=== PATIENT | male | born 1970 | race African-American/Black ===

== ENCOUNTER 2022-06-23 06:46 | Inpatient (IN) | payer OTHER, SELFPAY ==
[2022-06-23] VITALS (17 sets, daily range): BP systolic 128–149; BP diastolic 54–89; PULSE 73–90; RESP 12–18; TEMP 36.4–36.8; O2SAT 96–100; BMI 33.1
--- NOTE | ~2022-06-23 | XR_ITS ---
EXAMINATION: XR chest 1V portable INDICATION: Swelling TECHNIQUE: Portable AP chest at 0759 hours COMPARISON: None available FINDINGS: Cardiomegaly is noted. There is a mild diffuse interstitial pattern. More focal airspace op acities are present in the mid and lower lung zones. No pleural effusion or pneumothorax. IMPRESSION: 1. Cardiomegaly with mild pulmonary edema. 2. Airspace opacities of the mid and lower lung zones, consistent with pulmonary edema versus atelect asis versus pneumonia. Reviewed, dictated and finalized at location A. IMPRESSION: 1. Cardiomegaly with mild pulmonary edema. 2. Airspace opacities of the mid and lower lung zones, consistent with pulmonar y edema versus atelectasis versus pneumonia.
--- NOTE | ~2022-06-23 | US_ITS ---
EXAMINATION: US abdomen limited DATE: 06/25/2022 11:42 INDICATION: Right upper quadrant pain TECHNIQUE: Multiple grayscale and Doppler ultrasound images of the abdomen were obtained. COMPARISON: None available FINDINGS: The head and body of the pancreas are normal. The pancreatic tail is obscured by bowel gas. The liver is normal with normal echogenicity and echotexture. No surface nodularity. Normal hepatope shawn flow in the main portal vein. The gallbladder is normal with no abnormal wall thickening, pericho lecystic fluid or stones. The normal common bile duct measures 3 mm. There was no sonographic Bermeo sign. A right pleural effusion is noted. IMPRESSION: 1. Normal sonographic study of the gallbladder. 2. Right pleural effusion noted. Reviewed, dictated and finalized at location A.
--- NOTE | ~2022-06-23 | US_ITS ---
EXAMINATION: US venous doppler [facility] DATE: 06/24/2022 10:41 INDICATION: Lower limb edema. TECHNIQUE: Grayscale ultrasound images without and with compression and Doppler ultrasound images of the bilateral lower extremity veins were obtained. COMPARISON: None. FINDINGS: The visualized portions of right common femoral vein, profunda (deep) femoral vein, femoral vein, pop liteal vein, peroneal veins, posterior tibial veins, and greater saphenous vein outflow are patent. The visualized portions of left common femoral vein, profunda femoral vein, femoral vein, popliteal v ein, peroneal veins, posterior tibial veins, and greater saphenous vein outflow are patent. IMPRESSION: 1. No deep venous thrombosis. Reviewed, dictated and finalized at location A.
--- NOTE | 2022-06-23 07:27 | ED.GENADULT ---
HPI - General Adult General Chief complaint: Unspecified Stated complaint: leg swelling Time Seen by Provider: 06/23/22 07:27 Source: patient History of Present Illness HPI narrative: 52 years old -[place]os[place] male came from home by private car complaining of swelling of the lower extremities, noticed 3 days ago. History of hypertension, ran out of medication over 1 year ago which include blood pressure medicine and water pills. He denies any fever, chills, nausea, vomiting, chest pain, shortness of breath. History of tobacco use and alcohol use occasionally. He denies any drug use. Related Data Home Medications Medication Instructions Recorded Confirmed No Home Medications 06/23/22 06/23/22 Allergies Allergy/AdvReac Type Severity Reaction Status Date / Time No Known Allergies Allergy Verified 06/23/22 07:20 Review of Systems Review of Systems: All systems reviewed & are unremarkable except as noted in HPI and below Exam Narrative: General appearance: Well-developed, well-nourished Skin: 3+ edema up to the knees bilaterally Head: Normocephalic, nontraumatic Eyes: Clear conjunctiva ENT: Oropharynx normal, ears normal, nose normal Neck: Supple, nontender Chest and respiratory: Airway patent, no respiratory distress, no accessory muscle use Heart: Regular rate/rhythm Abdomen: Soft, nontender, no organomegaly, quiet bowel sounds Vascular: Normal peripheral pulses, normal capillary refill. Musculoskeletal: Normal range of motion, nontender back Neurologic: Alert and oriented ?3, COOK PIE is normal as tested, no gross motor deficit Course Vital Signs Vital signs: Vital Signs Temperature 36.8 C 06/23/22 07:02 Pulse Rate 78 06/23/22 07:02 Respiratory Rate 18 06/23/22 07:02 Blood Pressure 146/76 H 06/23/22 07:02 Pulse Oximetry 98 06/23/22 07:02 Oxygen Delivery Room Air 06/23/22 07:02 Temperature 36.8 C 06/23/22 07:02 Pulse Rate 82 06/23/22 08:36 Respiratory Rate 18 06/23/22 08:36 Blood Pressure 149/71 H 06/23/22 08:36 Pulse Oximetry 99 06/23/22 08:36 Oxygen Delivery Room Air 06/23/22 07:02 Medical Decision Making Vital Signs Vital Signs: Vital Signs Temperature 36.8 C 06/23/22 07:02 Pulse Rate 78 06/23/22 07:02 Respiratory Rate 18 06/23/22 07:02 Blood Pressure 146/76 H 06/23/22 07:02 Pulse Oximetry 98 06/23/22 07:02 Oxygen Delivery Room Air 06/23/22 07:02 Temperature 36.8 C 06/23/22 07:02 Pulse Rate 82 06/23/22 08:36 Respiratory Rate 18 06/23/22 08:36 Blood Pressure 149/71 H 06/23/22 08:36 Pulse Oximetry 99 06/23/22 08:36 Oxygen Delivery Room Air 06/23/22 07:02 Lab Data Result diagrams: 06/23/22 07:46 06/23/22 07:46 Labs: Lab Results 06/23/22 06/23/22 Range/Units 07:46 07:46 WBC 5.8 (4.5-10.0) K/mm3 RBC 3.80 L (4.6-6.20) M/mm3 Hgb 10.4 L (14.0-18.0) g/dL Hct 33.6 L (42.0-52.0) % MCV 88.4 (80-100) fl MCH 27.4 (26-34) pg MCHC 31.0 L (32-36) g/dl RDW 15.2 H (11.5-14.5) % Plt Count 287 (150-375) k/mm3 MPV 12.4 H (7.4-10.4) fl Immature Gran % (Auto) 0.3 (0-0.5) % Neut % (Auto) 61.0 (45.5-73.1) % Lymph % (Auto) 23.0 (18.3-44.2) % Steele % (Auto) 11.2 H (2.6-8.5) % Eos % (Auto) 3.5 (0-4.4) % Baso % (Auto) 1.0 (0.2-1.2) % Lymph # (Auto) 1.33 (0.9-3.2) K/mm3 Steele # (Auto) 0.7 H (0.1-0.6) K/mm3 Eos # (Auto) 0.2 (0-0.3) K/mm3 Baso # (Auto) 0.1 (0.0-0.1) K/mm3 Abs Immat Gran (auto) 0.02 (0.00-0.031) K/mm3 Absolute Neuts (auto) 3.5 (1.3-6.7) K/mm3 Absolute Nucleated RBC 0.0 (0.0-0.012) K/mm3 Nucleated RBC % 0.0
--- NOTE | 2022-06-23 07:28 | ECG_ITS ---
Measurements Intervals [place] Rate: 79 P: 59 GA: 182 QRS: 39 QRSD: 104 T: 135 QT: 423 QTc: 486 Interpretive Statements SINUS RHYTHM WITH FREQUENT SUPRAVENTRICULAR PREMATURE COMPLEXES LEFT ATRIAL ENLARGEMENT LEFT VENTRICULAR HYPERTROPHY AND ST-T CHANGE Electronically Signed On 06-23-2022 11:42:45 CDT by Dinesh Dolan M.D.
[2022-06-23 07:49] LABS: Basophils Absolute Auto 0.1 K/mm3 (0.0-0.1); Eosinophils Absolute Auto 0.2 K/mm3 (0-0.3); Eosinophils Percent Auto 3.5 % (0-4.4); Hematocrit 33.6 % (42.0-52.0); Hemoglobin 10.4 g/dL (14.0-18.0); Immature Granulocyte Absolute 0.02 K/mm3 (0.00-0.031); Immature Granulocyte Percent A 0.3 % (0-0.5); Lymphocytes Absolute Auto 1.33 K/mm3 (0.9-3.2); Mean Corpuscular Hemoglobin 27.4 pg (26-34); Mean Corpuscular Volume 88.4 fl (80-100); Mean Platelet Volume 12.4 fl (7.4-10.4); Monocytes Absolute Auto 0.7 K/mm3 (0.1-0.6); Monocytes Percent Auto 11.2 % (2.6-8.5); Neutrophils Absolute Auto 3.5 K/mm3 (1.3-6.7); Platelet Count Result 287 k/mm3 (150-375); Red Cell Distribution Width 15.2 % (11.5-14.5); White Blood Count 5.8 K/mm3 (4.5-10.0)
[2022-06-23 08:03] LABS: Alanine Aminotransferase 530 U/L (6-50); Albumin Level 3.1 g/dL (3.5-5.1); Alkaline Phosphatase 98 U/L (38-126); Anion Gap 11 mmol/L (8-16); Aspartate Amino Transferase 97 U/L (17-59); Bilirubin,Total 1.1 mg/dL (0.2-1.3); Blood Urea Nitrogen 19 mg/dL (9-20); Calcium 8.5 mg/dL (8.4-10.2); Carbon Dioxide 24 mmol/L (22-30); Chloride 103 mmol/L (98-107); Estimated CRCL calculation 98 ml/min; Estimated Glomerular Filt Rate > 60; Glucose 120 mg/dL (65-110); Potassium 3.4 mmol/L (3.4-5.0); Sodium 138 mmol/L (137-145)
[2022-06-23 08:11] LABS: NT Pro B Type Natriuretic Pept 2220 pg/mL (5-100)
[2022-06-23] MEDS: FUROSEMIDE INJ 100 MG/10 ML VIAL 80 MG IV PUSH (10:40)
[2022-06-23] MEDS: NITROGLYCERIN OINTMENT 1 INCH DOSE TRANSDERM ×2 (10:41→18:00)
--- NOTE | 2022-06-23 14:20 | ADMGEN ---
This patient, Gabriel Persaud, was admitted to IMU Room 210-01 on 06/23/22 at 1255. Patient/family oriented to hospital policies and general routines including ID bracelet, bed and alarms, visiting hours, pain management, procedures, bathroom and other care routines, personal items, smoking policy, room service/diet, and visiting hours. Information on how to activate the Rapid Response Team has been discussed. Patient/Family are encouraged to report perceived risks to care and to ask questions if they do not understand what they are told or what they should do.
--- NOTE | 2022-06-23 16:15 | PM.IMHP ---
H&P: HPI History of Present Illness Date/Time: 06/23/22 16:15 Chief Complaint: shortness of breath Narrative: ED-HPI narrative: 52 years old -Aust[place] male came from home by private car complaining of swelling of the lower extremities, noticed 3 days ago.? History of hypertension, ran out of medication over 1 year ago which include blood pressure medicine and water pills.? He denies any fever, chills, nausea, vomiting, chest pain, shortness of breath.? History of tobacco use and alcohol use occasionally.? He denies any drug use. patient states the has not seen his physician for 2 year and does not remember what medication he takes, however he noticed progressive shortness of breath with exertion and lower extremity edema presented emergency department for further evaluate, suspect patient has a congestive heart failure, due to persistent hypertension and noncompliance, patient was started on IV Lasix to diurese and nitropaste, to further evaluate will do the lower extremity Doppler to rule out DVT and cardiac echo to further evaluate etiology of congestive heart failure, patient admitted with observation status Review of Systems Review of Systems: All systems reviewed & are unremarkable except as noted in HPI and below PMFSH Social History Social History Smoking packs per day: 0.25 Smoking cigarettes per day: 5.0 Years smoked: 23 Smoking pack-years: 5.75 Smoking status: Current every day smoker Tobacco type: cigarettes Alcohol intake: current Drinks per week: 3 Substance use: never Substance use type: does not use Spiritual care concerns: No Meds Home Medications and Allergies Home Medications Medication Instructions Recorded Confirmed Type No Home Medications 06/23/22 06/23/22 History Allergies Allergy/AdvReac Type Severity Reaction Status Date / Time No Known Allergies Allergy Verified 06/23/22 07:20 Vital Signs Vital Signs - 24 hr 06/23/22 07:02 06/23/22 08:01 06/23/22 08:36 Temperature 98.2 F Pulse Rate 78 82 Respiratory Rate 18 18 Blood Pressure 146/76 H 136/79 149/71 H Pulse Oximetry 98 98 99 Oxygen Delivery Room Air 06/23/22 08:31 06/23/22 09:01 06/23/22 10:01 Temperature Pulse Rate 75 76 74 Respiratory Rate 18 18 14 Blood Pressure 149/71 H 144/89 H 142/63 H Pulse Oximetry 100 100 96 Oxygen Delivery 06/23/22 10:39 06/23/22 11:20 06/23/22 12:36 Temperature Pulse Rate 77 75 73 Respiratory Rate 16 16 18 Blood Pressure 142/63 H 131/61 134/78 Pulse Oximetry 100 98 97 Oxygen Delivery 06/23/22 12:00 06/23/22 12:57 06/23/22 14:00 Temperature 97.6 F Pulse Rate 74 75 75 Respiratory Rate 12 Blood Pressure 130/80 Pulse Oximetry 100 Oxygen Delivery 06/23/22 12:55 Temperature Pulse Rate Respiratory Rate Blood Pressure Pulse Oximetry Oxygen Delivery Room Air Exam Narrative: moderately obese Patient is comfortable, NAD HEENT: eyes are clear and none icteric LUNGS: bilateral fair entry with rales HEART: RR S1S2 ABD: BS+, Soft and nontender Lower extremities: b/l edema SKIN: nonjaundiced Neuro: grossly intact. H&P: Results Labs Labs: Short CBC 06/23/22 Range/Units 07:46 WBC 5.8 (4.5-10.0) K/mm3 Hgb 10.4 L (14.0-18.0) g/dL Hct 33.6 L (42.0-52.0) % Plt Count 287 (150-375) k/mm3 BMP 06/23/22 07:46 Sodium 138 Potassium 3.4 Chloride 103 Carbon Dioxide 24 BUN 19 Creatinine 1.00 Glucose 120 H Calcium 8.5 Cardiac Enzymes 06/23/22 Range/Units 10:38 Troponin I 0.020 (0.000-0.034) ng/mL Liver Function 06/23/22 Range/Units 07:46 Total Bilirubin 1.1 (0.2-1.3) mg/dL AST 97 H (17-59) U/L ALT 530 H (6-50) U/L Alkaline Phosphatase 98 (38-126) U/L Albumin 3.1 L (3.5-5.1) g/dL Assessment and Plan Assessment and plan (1) CHF (congestive heart failure):
[2022-06-23] MEDS: POTASSIUM CHLORIDE 20 MEQ TABLET 40 MEQ PO (17:59)
[2022-06-23 19:07] LABS: Troponin I 0.023 ng/mL (0.000-0.034)
[2022-06-23] MEDS: FUROSEMIDE INJ 40 MG/4 ML VIAL IV PUSH (21:45)
[2022-06-24] VITALS (16 sets, daily range): BP systolic 123–149; BP diastolic 61–76; PULSE 73–88; RESP 12–18; TEMP 36.4–36.7; O2SAT 96–100
--- NOTE | 2022-06-24 | ECHO_ITS ---
Patient Info Name: Gabriel Persaud Age: 52 years : 1970 Gender: Male Ht: 72 in Wt: 244 lbs BSA: 2.40 m2 HR: 73 bpm BP: 123 / 72 mmHg Heart Rhythm: Sinus Rhythm Exam Date: 06/24/2022 9:41 AM Exam Location: [facility] Patient Status: Inpatient Admit Date: 06/23/2022 Staff Ordering Physician: Hernán Paul MD [employer] Machine Operator: Rashel Bermeo, ALIE, RT Attending Provider: Yash Arias MD Exam Type: CA echo dop color flow w con Study Info Indications I50.9 - Heart failure, unspecified Complete two-dimensional, color flow and Doppler transthoracic echocardiogram is performed. Strain analysis performed. Summary 1. Complete two-dimensional, color flow and Doppler transthoracic echocardiogram is performed. 2. Severe left ventricular enlargement, 6.1 cm by 2D and 7.5 cm by M-mode. Mild eccentric left ventricular hypertrophy. Severe global hypokinesis, visual ejection fraction 20-25%, calculated 31%. Diastolic function indeterminate. 3. Mild right ventricular enlargement and hypokinesis. 4. Left atrial chamber dimension is severely enlarged. 5. Right atrial chamber dimension is severely enlarged. 6. There is moderately severe to severe eccentric aortic valve regurgitation. Sclerotic aortic valve, probably trileaflet. 7. There is moderate to severe eccentric mitral valve regurgitation. PISA = 0.6 cm. 8. There is moderate tricuspid valve regurgitation. 9. There is mild pulmonic regurgitation. 10. Dilated inferior vena cava with <50% collapse upon inspiration consistent with significantly elevated right atrial pressure, 20 mmHg. 11. Moderate pulmonary hypertension, estimated pulmonary arterial systolic pressure is 60 mmHg. 12. Normal sinus rhythm. Left Ventricle Left ventricular chamber dimension is severely enlarged. Left ventricular systolic function is normal, estimated at 20-25%. There is mildly increased left ventricular wall thickness. Left ventricular septal wall motion is normal. The left ventricular diastolic function is indeterminate. Global longitudinal strain is severely elevated at -8 %. Right Ventricle Right ventricular chamber dimension is mildly enlarged. Right ventricular systolic function is reduced. Left Atria Left atrial chamber dimension is severely enlarged. Right Atria Right atrial chamber dimension is severely enlarged. Aortic Valve The aortic valve is trileaflet. There is moderate aortic valve sclerosis. There is no aortic valve stenosis. There is moderately severe to severe eccentric aortic valve regurgitation. Sclerotic aortic valve, probably trileaflet. Pulmonic Valve The pulmonic valve is normal. There is no pulmonic valve stenosis. There is mild pulmonic regurgitation. Mitral Valve The mitral valve has thickened leaflets. There is no mitral valve stenosis. There is moderate to severe eccentric mitral valve regurgitation. PISA = 0.6 cm. Tricuspid Valve The tricuspid valve leaflets are normal. There is no significant tricuspid valve stenosis. There is moderate tricuspid valve regurgitation. Moderate pulmonary hypertension, estimated pulmonary arterial systolic pressure is 60 mmHg. Pericardium/Pleural The pericardium appears normal. There is no pericardial effusion. Inferior Vena Cava Dilated inferior vena cava with <50% collapse upon inspiration consistent with significantly elevated right atrial pressure, 20 mmHg. Aorta The aortic root size at the sinus of Valsalva is normal. The prox
[2022-06-24] MEDS: NITROGLYCERIN OINTMENT 1 INCH DOSE TRANSDERM ×4 (00:34→18:22)
[2022-06-24 05:02] LABS: Hematocrit 32.3 % (42.0-52.0); Hemoglobin 10.1 g/dL (14.0-18.0); Mean Corpuscular HGB Conc 31.3 g/dl (32-36); Mean Corpuscular Hemoglobin 27.2 pg (26-34); Mean Corpuscular Volume 86.8 fl (80-100); Mean Platelet Volume 12.2 fl (7.4-10.4); Platelet Count Result 290 k/mm3 (150-375); Red Blood Count 3.72 M/mm3 (4.6-6.20); White Blood Count 5.3 K/mm3 (4.5-10.0)
[2022-06-24 05:20] LABS: Anion Gap 1 mmol/L (8-16); Blood Urea Nitrogen 13 mg/dL (9-20); Calcium 7.9 mg/dL (8.4-10.2); Carbon Dioxide 28 mmol/L (22-30); Chloride 105 mmol/L (98-107); Cholesterol 120 mg/dL (0-200); Estimated CRCL calculation 106 ml/min; Estimated Glomerular Filt Rate > 60; Glucose 97 mg/dL (65-110); HDL Direct 23 mg/dL; Magnesium 1.5 mg/dL (1.6-2.3); Potassium 3.7 mmol/L (3.4-5.0); Sodium 134 mmol/L (137-145); Triglycerides 74 mg/dL (<150)
[2022-06-24 05:25] LABS: LDL Cholesterol Direct 79 mg/dL
[2022-06-24 05:45] LABS: Hepatitis B Surface Antigen Negative (Negative)
[2022-06-24 05:51] LABS: HAV RESULT Negative (Negative); Hepatitis B Core IgM Result Negative (Negative)
[2022-06-24 06:02] LABS: Hepatitis C Virus Antibody Negative (Negative)
[2022-06-24] MEDS: ENOXAPARIN 40 MG/0.4 ML SYRINGE SUB-Q (09:39)
[2022-06-24] MEDS: MAGNESIUM OXIDE 400 MG TABLET PO (09:39)
[2022-06-24] MEDS: POTASSIUM CHLORIDE 20 MEQ TABLET 40 MEQ PO (09:39)
[2022-06-24] MEDS: MAGNESIUM SULF 2 GM/WATER 50ML 2 GM/50 ML BAG IVPB (09:39)
[2022-06-24] MEDS: FUROSEMIDE INJ 40 MG/4 ML VIAL IV PUSH ×2 (09:39→20:11)
--- NOTE | 2022-06-24 18:56 | PM.IMPN ---
Progress Note: A&P Assessment and Plan (1) CHF (congestive heart failure): Code(s): I50.9 - Heart failure, unspecified Status: Acute Assessment and Plan: ED-[facility] narrative: 52 years old -[place]at[place] male came from home by private car complaining of swelling of the lower extremities, noticed 3 days ago.? History of hypertension, ran out of medication over 1 year ago which include blood pressure medicine and water pills.? He denies any fever, chills, nausea, vomiting, chest pain, shortness of breath.? History of tobacco use and alcohol use occasionally.? He denies any drug use. patient states the has not seen his physician for 2 year and does not remember what medication he takes, however he noticed progressive shortness of breath with exertion and lower extremity edema presented emergency department for further evaluate, suspect patient has a congestive heart failure, due to persistent hypertension and noncompliance, patient was started on IV Lasix to diurese and nitropaste, to further evaluate will do the lower extremity Doppler to rule out DVT and cardiac echo to further evaluate etiology of congestive heart failure, 06/24/2022 interval history: patient states the has not seen his physician for 2 year and does not remember what medication he taking , however he noticed progressive shortness of breath with exertion and lower extremity edema presented emergency department for further evaluate, suspect patient has a congestive heart failure, due to persistent hypertension and noncompliance, patient was started on IV Lasix to diurese and nitropaste, today patient is his symptoms have improved is feeling much better compared to when he arrived, will add lisinopril 10 mg q.day, to further evaluate patient had the lower extremity Doppler to rule out DVT which is negative for DVT, and cardiac echo to further evaluate etiology of congestive heart failure results are pending will have PT OT evaluate the patient will benefit. (2) Elevated liver enzymes: Code(s): R74.8 - Abnormal levels of other serum enzymes Status: Acute Assessment and Plan: etiology uncertain will do acute hepatitis panel is negative most likely patient has fatty liver will do the abdominal ultrasound to further evaluate. Subjective Date/time seen: 06/24/22 18:56 06/24/2022 interval history: patient states the has not seen his physician for 2 year and does not remember what medication he taking , however he noticed progressive shortness of breath with exertion and lower extremity edema presented emergency department for further evaluate, suspect patient has a congestive heart failure, due to persistent hypertension and noncompliance, patient was started on IV Lasix to diurese and nitropaste, today patient is his symptoms have improved is feeling much better compared to when he arrived, will add lisinopril 10 mg q.day, to further evaluate patient had the lower extremity Doppler to rule out DVT which is negative for DVT, and cardiac echo to further evaluate etiology of congestive heart failure results are pending will have PT OT evaluate the patient will benefit. Review of Systems Review of Systems: All systems reviewed & are unremarkable except as noted in HPI and below Exam Narrative: moderately obese Patient is comfortable, NAD HEENT: eyes are clear and none icteric LUNGS: bilateral fair entry with rales HEART: RR S1S2 ABD: BS+, Soft and nontender Lower extremities: b/l edema SKIN: nonjaundiced Neuro: grossly intact. Objective Data Vital Signs Vital Signs: Vital Signs - 24 hr 06/23/22 20:00 06/23/22 20:00 06/23/22 20:00 Temperature 97.8 F Pulse Rate 84 80 Respiratory Rate 16 Blood Pressure 130/62 Pulse Oximetry 99 Oxygen Delivery Room Air 06/23/22 22:00 06/23/22 23:59 06/24/22 00:00 Temperature 97.6 F Pulse Rate 82 82 75 Respiratory Rate 16 Blood Pressure 142/75 H Pulse Oximetry 99 Ox
[2022-06-25] VITALS (15 sets, daily range): BP systolic 144–157; BP diastolic 62–86; PULSE 76–97; RESP 16–18; TEMP 36–37; O2SAT 96–100
[2022-06-25] MEDS: NITROGLYCERIN OINTMENT 1 INCH DOSE TRANSDERM ×2 (00:28→06:10)
[2022-06-25 05:07] LABS: Hematocrit 32.2 % (42.0-52.0); Hemoglobin 10.1 g/dL (14.0-18.0); Mean Corpuscular HGB Conc 31.4 g/dl (32-36); Mean Corpuscular Hemoglobin 27.2 pg (26-34); Mean Corpuscular Volume 86.6 fl (80-100); Mean Platelet Volume 11.8 fl (7.4-10.4); Platelet Count Result 287 k/mm3 (150-375); Red Blood Count 3.72 M/mm3 (4.6-6.20); Red Cell Distribution Width 15.2 % (11.5-14.5); White Blood Count 4.8 K/mm3 (4.5-10.0)
[2022-06-25 06:05] LABS: Anion Gap 8 mmol/L (8-16); Blood Urea Nitrogen 11 mg/dL (9-20); Calcium 8.4 mg/dL (8.4-10.2); Carbon Dioxide 27 mmol/L (22-30); Chloride 103 mmol/L (98-107); Estimated CRCL calculation 104 ml/min; Estimated Glomerular Filt Rate > 60; Glucose 99 mg/dL (65-110); Potassium 3.7 mmol/L (3.4-5.0); Sodium 138 mmol/L (137-145)
[2022-06-25] MEDS: ENOXAPARIN 40 MG/0.4 ML SYRINGE SUB-Q (08:37)
[2022-06-25] MEDS: FUROSEMIDE INJ 40 MG/4 ML VIAL IV PUSH ×2 (08:37→21:19)
[2022-06-25] MEDS: lisinopriL 10 MG TABLET PO (08:46)
[2022-06-25] MEDS: MAGNESIUM OXIDE 400 MG TABLET PO (08:47)
--- NOTE | 2022-06-25 11:26 | PM.CNCAR ---
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 S lower extremity edema is improving on Lasix.. Was started on Coreg 3.125 mg b.i.d. and lisinopril 10 mg daily as well as Lasix 40 mg IV b.i.d. -check with welfare case worker if we can start Entresto 24-26 mg b.i.d. if his insurance will cover. -continue Lasix. -will need to optimize heart failure management and reassess the severity of the mitral and aortic valve regurgitation. Discussed with the patient that he might need open heart surgery to repair all of that but that will be determined in the future after optimizing heart failure treatment. -will need Life Vest given frequent PVCs on telemetry. -tobacco cessation. -ischemic evaluation to be determined. History of Present Illness History of Present Illness Consult date/time: date of mabyffu51/01/22 11:26 Requesting physician: Alexnader Brooks MD Consult reason: congestive heart failure Reason For Visit: Acute pulmonary edema/elevated liver enzymes/nonco Narrative: this is 52-year-old patient with past history of hypertension who ran out of his medications a year ago and presents to hospital with lower extremity edema. Associated with dyspnea on exertion. Denies chest pain, dizziness, syncope, palpitations. Telemetry frequent PVCs. He smokes cigarettes but denies significant alcohol drinking. Denies drugs. on arrival his systolic blood pressures in the 140s. Chest x-ray reviewed and as myself shows cardiomegaly with mild vascular congestion. EKG reviewed and was massive showed sinus rhythm with frequent premature atrial contractions, LVH with ST T changes, left atrial enlargement. creatinine 1, troponins x2 negative. brain atretic peptide 2200 Echocardiogram showed1. Complete two-dimensional, color flow and Doppler transthoracic echocardiogram is performed. ? 2. Severe left ventricular enlargement, 6.1 cm by 2D and 7.5 cm by M-mode. Mild eccentric left ventricular hypertrophy.? Severe global hypokinesis, visual ejection fraction 20-25%, calculated 31%.? Diastolic function indeterminate. ? 3. Mild right ventricular enlargement and hypokinesis. ? 4. Left atrial chamber dimension is severely enlarged. ? 5. Right atrial chamber dimension is severely enlarged. ? 6. There is moderately severe to severe eccentric aortic valve regurgitation.? Sclerotic aortic valve, probably trileaflet. ? 7. There is moderate to severe eccentric mitral valve regurgitation.? PISA = 0.6 cm. ? 8. There is moderate tricuspid valve regurgitation. ? 9. There is mild pulmonic regurgitation. ? 10. Dilated inferior vena cava with <50% collapse upon inspiration consistent with significantly elevated right atrial pressure, 20 mmHg. ? 11. Moderate pulmonary hypertension, estimated pulmonary arterial systolic pressure is 60 mmHg. ? 12. Normal sinus rhythm. Review of Systems Constitutional: Constitutional: Denies chills, Denies fever(s) and Denies poor appetite Eyes: Eyes: Denies eye discharge, Denies loss of vision, Denies eye pain and Denies photophobia ENT: Denies dizziness, Denies epistaxis, Denies nasal congestion and Denies sore throat Cardiovascular: Cardiovascular: Denies chest pain, Denies syncope, Denies pedal edema, Reports leg edema, Denies palpitations, Reports dyspnea, Reports dyspnea on exertion and Reports orthopnea Respiratory: Respiratory: Denies cough, Reports dyspnea, Reports dyspnea on exertion and
[2022-06-25] MEDS: carvediloL 3.125 MG TABLET PO ×2 (12:25→21:19)
[2022-06-25] MEDS: POTASSIUM CHLORIDE 20 MEQ TABLET.ER PO (12:25)
--- NOTE | 2022-06-25 12:32 | PM.IMPN ---
Progress Note: A&P Assessment and Plan (1) CHF (congestive heart failure): Code(s): I50.9 - Heart failure, unspecified Status: Acute Assessment and Plan: Continue cardiac meds. Continue furosemide, carvedilol, lisinopril. Appreciate cardiology input (2) Elevated liver enzymes: Code(s): R74.8 - Abnormal levels of other serum enzymes Status: Acute Assessment and Plan: Ultrasound noted, monitor Subjective Date/time seen: 06/25/22 12:32 No complaints Exam Narrative: General: alert and oriented Psych: appropriate mood nad affect Eyes: PERRLA Neck: Trachea midline, no new lesions Skin: no changes Lungs: CTA Cardiac: Normal S1,S2, no MGR ABD: soft, nd, nt, nbs Ext: +1-2 2 bilateral lower extremity edema Vasc: Pulses intact Objective Data Vital Signs Vital Signs: Vital Signs - 24 hr 06/24/22 16:00 06/24/22 14:00 06/24/22 16:00 Temperature 97.6 F Pulse Rate 81 85 83 Respiratory Rate 12 Blood Pressure 140/66 Pulse Oximetry 100 Oxygen Delivery 06/24/22 18:00 06/24/22 16:00 06/24/22 19:50 Temperature 98 F Pulse Rate 80 77 Respiratory Rate 16 Blood Pressure 134/61 Pulse Oximetry 100 Oxygen Delivery Room Air 06/24/22 20:00 06/24/22 20:00 06/24/22 22:00 Temperature Pulse Rate 81 78 Respiratory Rate Blood Pressure Pulse Oximetry Oxygen Delivery Room Air 06/24/22 23:48 06/25/22 00:00 06/25/22 00:00 Temperature 97.7 F Pulse Rate 76 79 Respiratory Rate 16 Blood Pressure 123/68 Pulse Oximetry 99 Oxygen Delivery Room Air 06/25/22 02:00 06/25/22 04:00 06/25/22 04:00 Temperature Pulse Rate 80 84 Respiratory Rate Blood Pressure Pulse Oximetry Oxygen Delivery Room Air 06/25/22 04:00 06/25/22 06:00 06/25/22 08:44 Temperature 98.6 F Pulse Rate 80 77 81 Respiratory Rate 16 Blood Pressure 148/74 H Pulse Oximetry 98 96 Oxygen Delivery Room Air 06/25/22 08:00 06/25/22 08:00 06/25/22 10:00 Temperature 97.3 F L Pulse Rate 88 97 93 Respiratory Rate 18 Blood Pressure 151/86 H Pulse Oximetry 100 Oxygen Delivery 06/25/22 11:43 06/25/22 12:25 Temperature 97.5 F L Pulse Rate 84 84 Respiratory Rate 16 Blood Pressure 144/62 H Pulse Oximetry 98 Oxygen Delivery Intake/Output Intake/Output: Intake & Output 06/22/22 06/23/22 06/24/22 06/25/22 23:59 23:59 23:59 23:59 Intake Total 240 1220 300 Output Total 3000 2200 1999 Balance -6468 -095 -5521 Meds/Results Medications: Active Medications Generic Name Dose Route Start Last Admin Trade Name Freq PRN Reason Stop Dose Admin Acetaminophen 650 mg 06/23/22 10:30 Acetaminophen 325 Mg Tablet PO Q4H PRN Mild Pain (1-3) or Fever Carvedilol 3.125 mg 06/25/22 09:00 06/25/22 12:25 Carvedilol 3.125 Mg Tablet PO 3.125 mg Q12HR MYLES Administration Enoxaparin Sodium 40 mg 06/24/22 09:00 06/25/22 08:37 Enoxaparin 40 Mg/0.4 Ml Syringe SUB-Q 40 mg DAILY MYLES Administration Furosemide 40 mg 06/23/22 21:00 06/25/22 08:37 Furosemide Inj 40 Mg/4 Ml Vial IV PUSH 40 mg Q12HR MYLES Administration Lisinopril 10 mg 06/26/22 09:00 Lisinopril 10 Mg Tablet PO DAILY MYLES Magnesium Oxide 400 mg 06/24/22 09:00 06/25/22 08:47 Magnesium Oxide 400 Mg Tablet PO 400 mg QAM MYLES Administration Perflutren Lipid Microsphere 0 ml 06/23/22 16:12 Perflutren Lipid Microspheres 1.5 Ml Vial Diluted To 10 Ml Total Volume IV PUSH 06/25/22 16:12 ONCE PRN adequate visualization Protocol Potassium Chloride 20 meq 06/25/22 08:00 06/25/22 12:25 Potassium Chloride 20 Meq Tablet.Er PO 20 meq DAILY@0800 MYLES Administration Radiology Results: ITS Impressions Chest X-Ray 06/23/22 08:24 IMPRESSION: 1. Cardiomegaly with mild pulmonary edema. 2. Airspace opacities of the mid and lower lung zones, consistent with pulmonary edema vers
[2022-06-25 13:36] LABS: Phosphorus 3.6 mg/dL (2.5-4.5)
[2022-06-25 13:38] LABS: Magnesium 1.8 mg/dL (1.6-2.3)
--- NOTE | 2022-06-25 15:26 | PC.NURSE ---
On 06/25/22, the student, [Shreya Hutchins], provided care and completed [facility] documentation on this patient. I have reviewed the student's documentation and agree with the findings.
--- NOTE | 2022-06-25 15:59 | PC.NURSE ---
This patient, Gabriel Persaud, was transferred to [facility] on 06/25/22 at 1559. Personal belongings sent with patient. Report given to Jeanie OWUSU. Appropriate documentation sent with patient.
[2022-06-26] VITALS (13 sets, daily range): BP systolic 147–173; BP diastolic 66–84; PULSE 75–97; RESP 12–24; TEMP 36.3–36.8; O2SAT 91–100
[2022-06-26 05:39] LABS: Hematocrit 33.5 % (42.0-52.0); Hemoglobin 10.6 g/dL (14.0-18.0); Mean Corpuscular HGB Conc 31.6 g/dl (32-36); Mean Corpuscular Hemoglobin 27.2 pg (26-34); Mean Corpuscular Volume 85.9 fl (80-100); Mean Platelet Volume 12.1 fl (7.4-10.4); Platelet Count Result 286 k/mm3 (150-375); Red Cell Distribution Width 15.3 % (11.5-14.5); White Blood Count 4.8 K/mm3 (4.5-10.0)
[2022-06-26 05:52] LABS: Alanine Aminotransferase 263 U/L (6-50); Albumin Level 3.3 g/dL (3.5-5.1); Alkaline Phosphatase 74 U/L (38-126); Anion Gap 9 mmol/L (8-16); Aspartate Amino Transferase 39 U/L (17-59); Bilirubin,Total 0.9 mg/dL (0.2-1.3); Blood Urea Nitrogen 12 mg/dL (9-20); Calcium 8.8 mg/dL (8.4-10.2); Carbon Dioxide 26 mmol/L (22-30); Chloride 104 mmol/L (98-107); Estimated CRCL calculation 82 ml/min; Estimated Glomerular Filt Rate > 60; Glucose 119 mg/dL (65-110); Potassium 3.7 mmol/L (3.4-5.0); Sodium 139 mmol/L (137-145)
[2022-06-26 06:00] LABS: NT Pro B Type Natriuretic Pept 4390 pg/mL (5-100)
--- NOTE | 2022-06-26 08:14 | PM.PNCARD ---
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 Improving with diuresis Continue with IV diuresis for now Initiating GDMT. Continue Coreg. I have stopped his lisinopril with the intention of starting Entresto after 36 hour MITCH washout. Will add spironolactone today LifeVest is in place Accurate intake and output Daily BMP while diuresing. Stable thus far Daily weight CHF counseling Ischemic evaluation at some point in the future Further assessment of severity of his MR and TR when he has been optimized from a CHF standpoint (2) Hypertension: Code(s): I10 - Essential (primary) hypertension Status: Acute Assessment and Plan: Remains elevated. Hopefully will improve with addition of HF meds Subjective Date/time seen: 06/26/22 08:14 Cardiology follow up for [facility], CHF He is improving but still has shortness of breath and some swelling. Denies any chest pain or palpitations. LifeVest is in place. Review of Systems Constitutional: Constitutional: Denies chills, Denies fever(s) and Denies poor appetite Eyes: Eyes: Denies eye discharge, Denies loss of vision, Denies eye pain and Denies photophobia ENT: Denies dizziness, Denies epistaxis, Denies nasal congestion and Denies sore throat Cardiovascular: Cardiovascular: Denies chest pain, Denies syncope, Denies pedal edema, Reports leg edema, Denies palpitations, Reports dyspnea, Reports dyspnea on exertion and Reports orthopnea Respiratory: Respiratory: Denies cough, Reports dyspnea, Reports dyspnea on exertion and Denies wheezing Gastrointestinal: Gastrointestinal: Denies abdominal pain, Denies diarrhea, Denies nausea and Denies vomiting Genitourinary: Genitourinary: Denies hematuria, Denies genital lesions and Denies dysuria Musculoskeletal: Musculoskeletal: Denies arthralgias, Denies joint swelling and Denies numbness Integumentary/Breasts: Skin/Breast: Denies pruritus and Denies rash Neurologic: Denies dizziness, Denies syncope, Denies loss of vision and Denies numbness Psychiatric: Psychiatric: Denies anxiety and Denies depression Endocrine: Endocrine: Denies cold intolerance, Denies heat intolerance and Denies palpitations Hematologic/Lymphatic: Hematologic/Lymphatic: Denies easy bleeding and Denies easy bruising Allergic/Immunologic: Allergic/Immunologic: Denies urticaria and Denies wheezing Exam Const: General: cooperative, comfortable, no acute distress, alert and awake Nutritional Appearance: well nourished Orientation/consciousness: patient oriented x3 HENMT: Head: normal to inspection, normocephalic and atraumatic Ears: hearing grossly normal bilaterally General nose exam: Normal external nose present, Normal nares present and no nasal discharge noted Face and sinus: normal facial exam and no erythema Mouth: No drooling and No restricted motion Throat: uvula midline Eyes: General: appearance normal, both eyes and all related structures Alignment and Position: position normal Conjunctivae: conjunctivae normal Sclera: sclerae normal Direct Ophthalmoscopy: No photophobia Neck: Neck: normal visual inspection and no JVD Thyroid: thyroid normal Carotids: no bruits Lymphatic: lymphedema not noted Chest: Chest palpation & inspection: normal inspection of the chest and no tenderness Resp: Effort & Inspection: normal respiratory effort and no nasal flaring Auscultation: clear to auscultation bilaterally, no crackles, no rales and no wheezes Cardio: Jugular venous distension: no JVD Rate: regular rate Rhythm: regular rhythm Heart sounds: S1 normal heart sound present, S2 normal heart sound present, no gallops, Murmur heart sound present and no rubs GI: Inspection: non-distended Auscultation: normal bowel sounds Rectal Exam: deferred
[2022-06-26] MEDS: MAGNESIUM OXIDE 400 MG TABLET PO (09:31)
[2022-06-26] MEDS: carvediloL 3.125 MG TABLET PO ×2 (09:31→21:11)
[2022-06-26] MEDS: FUROSEMIDE INJ 40 MG/4 ML VIAL IV PUSH ×3 (09:32→21:11)
[2022-06-26] MEDS: ENOXAPARIN 40 MG/0.4 ML SYRINGE SUB-Q (09:32)
[2022-06-26] MEDS: POTASSIUM CHLORIDE 20 MEQ TABLET.ER PO (09:32)
--- NOTE | 2022-06-26 11:28 | PM.IMPN ---
Progress Note: A&P Assessment and Plan (1) CHF (congestive heart failure): Code(s): I50.9 - Heart failure, unspecified Status: Acute Assessment and Plan: Continue cardiac meds. Continue furosemide, carvedilol, lisinopril. Appreciate cardiology input (2) Elevated liver enzymes: Code(s): R74.8 - Abnormal levels of other serum enzymes Status: Acute Assessment and Plan: Ultrasound noted, monitor Subjective Date/time seen: 06/26/22 11:28 Complaining of some mild shortness of breath. Exam Narrative: General: alert and oriented Psych: appropriate mood nad affect Eyes: PERRLA Neck: Trachea midline, no new lesions Skin: no changes Lungs: CTA Cardiac: Normal S1,S2, no MGR ABD: soft, nd, nt, nbs Ext: +1-2 2 bilateral lower extremity edema Vasc: Pulses intact Objective Data Vital Signs Vital Signs: Vital Signs - 24 hr 06/25/22 11:43 06/25/22 12:25 06/25/22 14:00 Temperature 97.5 F L Pulse Rate 84 84 85 Respiratory Rate 16 Blood Pressure 144/62 H Pulse Oximetry 98 06/25/22 16:00 06/25/22 18:06 06/25/22 20:19 Temperature 98.1 F 96.8 F L Pulse Rate 80 83 80 Respiratory Rate 16 18 Blood Pressure 157/72 H 156/71 H Pulse Oximetry 100 100 06/25/22 21:19 06/25/22 20:42 06/26/22 00:18 Temperature 97.5 F L Pulse Rate 80 76 78 Respiratory Rate 18 Blood Pressure 147/77 H Pulse Oximetry 94 06/26/22 00:00 06/26/22 04:31 06/26/22 04:00 Temperature 97.4 F L Pulse Rate 75 80 75 Respiratory Rate 18 Blood Pressure 158/77 H Pulse Oximetry 100 06/26/22 09:31 06/26/22 09:57 Temperature 97.7 F Pulse Rate 80 88 Respiratory Rate 24 H Blood Pressure 150/80 H Pulse Oximetry 97 Intake/Output Intake/Output: Intake & Output 06/23/22 06/24/22 06/25/22 06/26/22 23:59 23:59 23:59 23:59 Intake Total 240 1220 1084 470 Output Total 3000 2200 2000 700 Balance -2760 -980 -916 -230 Meds/Results Medications: Active Medications Generic Name Dose Route Start Last Admin Trade Name Sahra PRN Reason Stop Dose Admin Acetaminophen 650 mg 06/23/22 10:30 Acetaminophen 325 Mg Tablet PO Q4H PRN Mild Pain (1-3) or Fever Carvedilol 3.125 mg 06/25/22 09:00 06/26/22 09:31 Carvedilol 3.125 Mg Tablet PO 3.125 mg Q12HR MYLES Administration Enoxaparin Sodium 40 mg 06/24/22 09:00 06/26/22 09:32 Enoxaparin 40 Mg/0.4 Ml Syringe SUB-Q 40 mg DAILY MYLES Administration Furosemide 40 mg 06/23/22 21:00 06/26/22 09:33 Furosemide Inj 40 Mg/4 Ml Vial IV PUSH 40 mg Q12HR MYLES Administration Magnesium Oxide 400 mg 06/24/22 09:00 06/26/22 09:31 Magnesium Oxide 400 Mg Tablet PO 400 mg QAM MYLES Administration Potassium Chloride 20 meq 06/25/22 08:00 06/26/22 09:32 Potassium Chloride 20 Meq Tablet.Er PO 20 meq DAILY@0800 MYLES Administration Sacubitril/Valsartan 1 tab 06/28/22 09:00 Sacubitril/Valsartan 24-26 Mg Tablet PO Q12HR [facility] Radiology Results: ITS Impressions Chest X-Ray 06/23/22 08:24 IMPRESSION: 1. Cardiomegaly with mild pulmonary edema. 2. Airspace opacities of the mid and lower lung zones, consistent with pulmonary edema versus atelectasis versus pneumonia. Venous Doppler Study 06/24/22 11:10 IMPRESSION: 1. No deep venous thrombosis. Abdomen Ultrasound 06/25/22 12:02 IMPRESSION: 1. Normal sonographic study of the gallbladder. 2. Right pleural effusion noted. Labs Labs: Laboratory Results - last 24 hr 06/25/22 06/25/22 06/26/22 04:45 04:45 05:03 WBC 4.8 RBC 3.90 L Hgb 10.6 L Hct 33.5 L MCV 85.9 MCH 27.2 MCHC 31.6 L RDW 15.3 H Plt Count 286 MPV 12.1 H Sodium Potassium Chloride Carbon Dioxide Anion Gap BUN Creatinine Estim Creat Clear Calc Estimated GFR Glucose Calcium Phosphorus 3.6 Magnesium 1.8 Total Bilirubin AST ALT Alkaline
[2022-06-27] VITALS (15 sets, daily range): BP systolic 143–165; BP diastolic 67–85; PULSE 86–98; RESP 12–20; TEMP 36.3–36.7; O2SAT 91–99
[2022-06-27 04:55] LABS: Hematocrit 36.4 % (42.0-52.0); Hemoglobin 11.6 g/dL (14.0-18.0); Mean Corpuscular HGB Conc 31.9 g/dl (32-36); Mean Corpuscular Hemoglobin 27.2 pg (26-34); Mean Corpuscular Volume 85.2 fl (80-100); Mean Platelet Volume 11.3 fl (7.4-10.4); Platelet Count Result 345 k/mm3 (150-375); Red Blood Count 4.27 M/mm3 (4.6-6.20); Red Cell Distribution Width 15.2 % (11.5-14.5); White Blood Count 5.9 K/mm3 (4.5-10.0)
[2022-06-27 05:31] LABS: Anion Gap 10 mmol/L (8-16); Blood Urea Nitrogen 13 mg/dL (9-20); Calcium 9.4 mg/dL (8.4-10.2); Carbon Dioxide 26 mmol/L (22-30); Chloride 104 mmol/L (98-107); Estimated CRCL calculation 75 ml/min; Estimated Glomerular Filt Rate > 60; Glucose 128 mg/dL (65-110); Potassium 3.8 mmol/L (3.4-5.0); Sodium 140 mmol/L (137-145)
[2022-06-27] MEDS: POTASSIUM CHLORIDE 20 MEQ TABLET.ER PO (08:47)
[2022-06-27] MEDS: carvediloL 6.25 MG TABLET PO ×2 (08:47→20:10)
[2022-06-27] MEDS: MAGNESIUM OXIDE 400 MG TABLET PO (08:48)
[2022-06-27] MEDS: SPIRONOLACTONE 25 MG TABLET PO (08:48)
[2022-06-27] MEDS: FUROSEMIDE INJ 40 MG/4 ML VIAL IV PUSH (08:48)
[2022-06-27] MEDS: ENOXAPARIN 40 MG/0.4 ML SYRINGE SUB-Q (08:48)
--- NOTE | 2022-06-27 09:37 | PM.PNCARD ---
Progress Note: A&P Assessment and Plan (1) CHF (congestive heart failure): Code(s): I50.9 - Heart failure, unspecified Status: Acute Plan 52-year-old gentleman with likely hypertensive cardiomyopathy being started on appropriate medical therapy. He appears to be essentially euvolemic on exam today some going to stop IV furosemide after this morning's dose and shift him to low-dose oral furosemide. He will be started on Entresto tomorrow. I would anticipate/ expect discharge in the next 24-48 hours barring any problems. He will follow up with my partner who will consider coronary angiography as an outpatient. Alexander Nieto MD [facility] Subjective Date/time seen: date of service:06/27/22 09:37 Interval history: Follow-up visit in this 52-year-old man with: Hypertension presenting with congestive heart failure presumably related to noncompliance with medication patient has significant cardiomyopathy with low ejection fraction. We are in the process of starting guideline directed medical therapy. Entresto will be started tomorrow after a 36 hour washout of MITCH-inhibitor. He feels well this morning and has no complaints. Exam Const: General: cooperative, comfortable, no acute distress, alert and awake Nutritional Appearance: well nourished Orientation/consciousness: patient oriented x3 HENMT: Head: normal to inspection, normocephalic and atraumatic Ears: hearing grossly normal bilaterally General nose exam: Normal external nose present, Normal nares present and no nasal discharge noted Face and sinus: normal facial exam and no erythema Mouth: No drooling and No restricted motion Throat: uvula midline Eyes: General: appearance normal, both eyes and all related structures Alignment and Position: position normal Conjunctivae: conjunctivae normal Sclera: sclerae normal Direct Ophthalmoscopy: No photophobia Neck: Neck: normal visual inspection and no JVD Thyroid: thyroid normal Carotids: no bruits Lymphatic: lymphedema not noted Chest: Chest palpation & inspection: normal inspection of the chest and no tenderness Resp: Effort & Inspection: normal respiratory effort and no nasal flaring Auscultation: clear to auscultation bilaterally, no crackles, no rales and no wheezes Cardio: Jugular venous distension: no JVD Rate: regular rate Rhythm: regular rhythm Heart sounds: S1 normal heart sound present, S2 normal heart sound present, no gallops, Murmur heart sound present and no rubs GI: Inspection: non-distended Auscultation: normal bowel sounds Rectal Exam: deferred : General: No no CVA tenderness Back/Spine/Pelvis: Back: No no CVA tenderness Cervical Spine: cervical ROM normal Skin: General skin exam: normal color and rashes and/or lesions noted Neuro: General: patient oriented x3 Cranial nerves: No CN's II-XII intact bilaterally Speech: normal speech Motor exam (neuro): no tremors Extrem: General: normal to inspection and pedal edema present Psych: Appearance: grossly normal and well kempt Speech and movement: Normal speech and movement present Affect: normal affect Objective Data Vital Signs Vital Signs: Vital Signs - 24 hr 06/26/22 09:57 06/26/22 14:30 06/26/22 18:10 Temperature 36.5 C 36.7 C 36.8 C Pulse Rate 88 95 87 Respiratory Rate 24 H 24 H 12 Blood Pressure 150/80 H 165/66 H 158/80 H Pulse Oximetry 97 91 99 Oxygen Delivery 06/26/22 16:00 06/26/22 20:33 06/26/22 21:11 Temperature 36.4 C Pulse Rate 86 94 94 Respiratory Rate 24 H Blood Pressure 173/84 H Pulse Oximetry 98 Oxygen Delivery 06/26/22 21:00 06/26/22 20:00 06/27/22 00:00 Temperature Pulse Rate 97 87 Respiratory Rate Blood Pressure Pulse Oximetry Oxygen Delivery Room Air 06/27/22 00:43 06/27/22 04:08 06/27/22 04:00 Temperature 36.7 C 36.5 C Pulse Rate 90 93 94 Respiratory Rate 20 12 Blood Pressure 164/77 H 165/85 H Pulse Oximetry 95 96 Oxygen Delive
--- NOTE | 2022-06-27 12:19 | PM.IMPN ---
Progress Note: A&P Assessment and Plan (1) CHF (congestive heart failure): Code(s): I50.9 - Heart failure, unspecified Status: Acute Assessment and Plan: Continue cardiac meds. Continue furosemide, carvedilol, Entresto Appreciate cardiology input Continue LifeVest (2) Elevated liver enzymes: Code(s): R74.8 - Abnormal levels of other serum enzymes Status: Acute Assessment and Plan: Ultrasound noted, monitor Subjective Date/time seen: 06/27/22 12:19 No new complaints Exam Narrative: General: alert and oriented Psych: appropriate mood nad affect Eyes: PERRLA Neck: Trachea midline, no new lesions Skin: no changes Lungs: CTA Cardiac: Normal S1,S2, no MGR ABD: soft, nd, nt, nbs Ext: +1-2 2 bilateral lower extremity edema Vasc: Pulses intact Objective Data Vital Signs Vital Signs: Vital Signs - 24 hr 06/26/22 14:30 06/26/22 18:10 06/26/22 16:00 Temperature 98.1 F 98.3 F Pulse Rate 95 87 86 Respiratory Rate 24 H 12 Blood Pressure 165/66 H 158/80 H Pulse Oximetry 91 99 Oxygen Delivery 06/26/22 20:33 06/26/22 21:11 06/26/22 21:00 Temperature 97.6 F Pulse Rate 94 94 Respiratory Rate 24 H Blood Pressure 173/84 H Pulse Oximetry 98 Oxygen Delivery Room Air 06/26/22 20:00 06/27/22 00:00 06/27/22 00:43 Temperature 98.1 F Pulse Rate 97 87 90 Respiratory Rate 20 Blood Pressure 164/77 H Pulse Oximetry 95 Oxygen Delivery 06/27/22 04:08 06/27/22 04:00 06/27/22 08:47 Temperature 97.7 F Pulse Rate 93 94 98 Respiratory Rate 12 Blood Pressure 165/85 H Pulse Oximetry 96 Oxygen Delivery 06/27/22 08:00 06/27/22 08:00 06/27/22 10:00 Temperature 97.6 F Pulse Rate 94 91 Respiratory Rate 20 Blood Pressure 143/85 H Pulse Oximetry 98 Oxygen Delivery Room Air Intake/Output Intake/Output: Intake & Output 06/24/22 06/25/22 06/26/22 06/27/22 23:59 23:59 23:59 23:59 Intake Total 1220 1084 1090 490 Output Total 2200 1999 3200 Balance -980 -916 -2110 490 Meds/Results Medications: Active Medications Generic Name Dose Route Start Last Admin Trade Name Sahra PRN Reason Stop Dose Admin Acetaminophen 650 mg 06/23/22 10:30 Acetaminophen 325 Mg Tablet PO Q4H PRN Mild Pain (1-3) or Fever Carvedilol 6.25 mg 06/27/22 09:00 06/27/22 08:47 Carvedilol 6.25 Mg Tablet PO 6.25 mg Q12HR MYLES Administration Enoxaparin Sodium 40 mg 06/24/22 09:00 06/27/22 08:48 Enoxaparin 40 Mg/0.4 Ml Syringe SUB-Q 40 mg DAILY MYLES Administration Furosemide 20 mg 06/28/22 09:00 Furosemide 20 Mg Tablet PO DAILY MYLES Magnesium Oxide 400 mg 06/24/22 09:00 06/27/22 08:48 Magnesium Oxide 400 Mg Tablet PO 400 mg QAM MYLES Administration Potassium Chloride 20 meq 06/25/22 08:00 06/27/22 08:47 Potassium Chloride 20 Meq Tablet.Er PO 20 meq DAILY@0800 MYLES Administration Sacubitril/Valsartan 1 tab 06/28/22 09:00 Sacubitril/Valsartan 24-26 Mg Tablet PO Q12HR MYLES Spironolactone 25 mg 06/27/22 09:00 06/27/22 08:48 Spironolactone 25 Mg Tablet PO 25 mg QAM MYLES Administration Radiology Results: ITS Impressions Chest X-Ray 06/23/22 08:24 IMPRESSION: 1. Cardiomegaly with mild pulmonary edema. 2. Airspace opacities of the mid and lower lung zones, consistent with pulmonary edema versus atelectasis versus pneumonia. Venous Doppler Study 06/24/22 11:10 IMPRESSION: 1. No deep venous thrombosis. Abdomen Ultrasound 06/25/22 12:02 IMPRESSION: 1. Normal sonographic study of the gallbladder. 2. Right pleural effusion noted. Labs Labs: Laboratory Results - last 24 hr 06/27/22 06/27/22 04:41 04:41 WBC 5.9 RBC 4.27 L Hgb 11.6 L Hct 36.4 L MCV 85.2 MCH 27.2 MCHC 31.9 L RDW 15.2 H Plt Count 345 MPV 11.3 H Sodium 140 Potassium 3.8 Chloride 104 Carbon Dioxide 26 Anion Gap 10
[2022-06-28] VITALS (7 sets, daily range): BP systolic 143–162; BP diastolic 61–68; PULSE 80–90; RESP 12–18; TEMP 36.3–37.1; O2SAT 93–98
[2022-06-28 05:12] LABS: Hematocrit 36.5 % (42.0-52.0); Hemoglobin 11.7 g/dL (14.0-18.0); Mean Corpuscular HGB Conc 32.1 g/dl (32-36); Mean Corpuscular Hemoglobin 26.7 pg (26-34); Mean Corpuscular Volume 83.3 fl (80-100); Mean Platelet Volume 11.6 fl (7.4-10.4); Platelet Count Result 338 k/mm3 (150-375); Red Blood Count 4.38 M/mm3 (4.6-6.20); Red Cell Distribution Width 14.9 % (11.5-14.5)
[2022-06-28 05:21] LABS: Anion Gap 13 mmol/L (8-16); Blood Urea Nitrogen 16 mg/dL (9-20); Calcium 8.8 mg/dL (8.4-10.2); Carbon Dioxide 26 mmol/L (22-30); Chloride 101 mmol/L (98-107); Estimated CRCL calculation 59 ml/min; Estimated Glomerular Filt Rate > 60; Glucose 118 mg/dL (65-110); Potassium 3.8 mmol/L (3.4-5.0); Sodium 140 mmol/L (137-145)
[2022-06-28] MEDS: carvediloL 6.25 MG TABLET PO (08:29)
[2022-06-28] MEDS: POTASSIUM CHLORIDE 20 MEQ TABLET.ER PO (08:29)
[2022-06-28] MEDS: FUROSEMIDE 20 MG TABLET PO (08:30)
[2022-06-28] MEDS: ENOXAPARIN 40 MG/0.4 ML SYRINGE SUB-Q (08:30)
[2022-06-28] MEDS: MAGNESIUM OXIDE 400 MG TABLET PO (08:31)
[2022-06-28] MEDS: SPIRONOLACTONE 25 MG TABLET PO (08:31)
[2022-06-28] MEDS: SACUBITRIL/VALSARTAN 24-26 MG TABLET 1 TAB PO (08:31)
--- NOTE | 2022-06-28 09:32 | PM.PNCARD ---
Progress Note: A&P Assessment and Plan (1) CHF (congestive heart failure): Code(s): I50.9 - Heart failure, unspecified Status: Acute Plan 52-year-old black male with likely hypertensive heart disease with left ventricular systolic failure. I will recommend advancing his carvedilol dosage to 12.5 mg q.12 hours since he is still moderately hypertensive and clearly will tolerate a higher dosage. His Entresto and diuretics will be continued at current dosages. I will arrange for follow-up in the office with my partner, Dr. Martinez in a relatively short interval. Medical titration will occur and plans for ischemic testing will be discussed/ determined based on his response to medical therapy Alexander Nieto MD [facility] Subjective Date/time seen: date of service:06/28/22 09:32 Interval history: Follow-up visit in this 52-year-old man with: Newly diagnosed systolic heart failure felt to be the result of untreated hypertension because of medical noncompliance. Patient is now on guideline directed medical therapy and offers no complaints of any kind the last couple of days he says he has been ambulating without any shortness of breath or difficulty. Exam Const: General: comfortable and no acute distress Other: Healthy-appearing black male comfortable cooperative no distress of any sort HENMT: Mouth: Yes moist mucous membranes Eyes: Sclera: sclerae normal Neck: Neck: supple and no JVD Resp: Effort & Inspection: normal respiratory effort Auscultation: clear to auscultation bilaterally Other: no rales no rhonchi Cardio: Rate: regular rate Rhythm: regular rhythm Other: PMI is difficult to palpate with the life vest in place GI: GI Palp: Yes Soft to palpation Auscultation: normal bowel sounds Skin: General skin exam: normal color Neuro: Other: alert and oriented x3 Extrem: Other: no peripheral edema at all/ adequate perfusion Objective Data Vital Signs Vital Signs: Vital Signs - 24 hr 06/27/22 10:00 06/27/22 12:00 06/27/22 14:00 Temperature 36.4 C 36.5 C Pulse Rate 91 94 87 Respiratory Rate 20 16 Blood Pressure 143/85 H 160/67 H Pulse Oximetry 98 97 Oxygen Delivery 06/27/22 16:00 06/27/22 18:00 06/27/22 19:36 Temperature 36.6 C 36.3 C L Pulse Rate 90 88 92 Respiratory Rate 16 17 Blood Pressure 154/82 H 162/74 H Pulse Oximetry 96 91 Oxygen Delivery 06/27/22 20:10 06/27/22 20:16 06/27/22 20:00 Temperature Pulse Rate 92 89 Respiratory Rate Blood Pressure Pulse Oximetry Oxygen Delivery Room Air 06/27/22 23:10 06/28/22 00:00 06/28/22 02:06 Temperature 36.6 C Pulse Rate 86 90 83 Respiratory Rate 18 18 Blood Pressure 162/72 H Pulse Oximetry 99 93 Oxygen Delivery Room Air 06/28/22 03:27 06/28/22 04:00 06/28/22 08:29 Temperature 37.1 C Pulse Rate 80 88 89 Respiratory Rate 16 Blood Pressure 162/68 H Pulse Oximetry 98 Oxygen Delivery 06/28/22 09:30 Temperature 36.3 C L Pulse Rate 83 Respiratory Rate 12 Blood Pressure 143/61 H Pulse Oximetry 96 Oxygen Delivery Intake/Output Intake/Output: Intake & Output 06/25/22 06/26/22 06/27/22 06/28/22 23:59 23:59 23:59 23:59 Intake Total 1084 1090 1340 340 Output Total 2000 3200 900 350 Balance -916 -2110 440 -10 Meds/Results Medications: Active Medications Generic Name Dose Route Start Last Admin Trade Name Sahra PRN Reason Stop Dose Admin Acetaminophen 650 mg 06/23/22 10:30 Acetaminophen 325 Mg Tablet PO Q4H PRN Mild Pain (1-3) or Fever Carvedilol 12.5 mg 06/28/22 21:00 Carvedilol 12.5 Mg Tablet PO Q12HR [facility] Enoxaparin Sodium 40 mg 06/24/22 09:00 06/28/22 08:30 Enoxaparin 40 Mg/0.4 Ml Syringe SUB-Q 40 mg DAILY MYLES Administration Furosemide 20 mg 06/28/22 09:00 06/28/22 08:30 Furosemide 20 Mg Tablet PO 20 mg DAILY MYLES Administration Magnesium Oxide 400 mg 06/24/22 09:00 09
--- NOTE | 2022-06-28 10:37 | P.DS_ITS ---
DS: Admitting Diagnosis Discharge Date June 28, 2022 Admitting Diagnosis Acute on chronic CHF, systolic DS: Discharge Diagnosis Discharge Diagnosis (1) CHF (congestive heart failure): Code(s): I50.9 - Heart failure, unspecified Status: Acute Assessment and Plan: Continue cardiac meds. Continue furosemide, carvedilol, Entresto Appreciate cardiology input Continue LifeVest (2) Elevated liver enzymes: Code(s): R74.8 - Abnormal levels of other serum enzymes Status: Acute Assessment and Plan: Ultrasound noted, monitor DS: Summary Hospital Course Hospital Course: Patient admitted for acute on chronic systolic CHF. Has reduced ejection fraction. Was having shortness of breath. Now improved after starting on cardiac regimen. Follow up with Cardiology for ischemic workup as outpatient Time Spent with Patient Time attestation: Total time spent providing and/or coordinating discharge services: Exam Narrative: General: alert and oriented Psych: appropriate mood nad affect Eyes: PERRLA Neck: Trachea midline, no new lesions Skin: no changes Lungs: CTA Cardiac: Normal S1,S2, no MGR ABD: soft, nd, nt, nbs Ext: +1-2 2 bilateral lower extremity edema Vasc: Pulses intact DS: Data Data Completed and Pending Labs on day of discharge: Labs from last 24 hours 06/28/22 06/28/22 04:55 04:55 WBC 6.0 RBC 4.38 L Hgb 11.7 L Hct 36.5 L MCV 83.3 MCH 26.7 MCHC 32.1 RDW 14.9 H Plt Count 338 MPV 11.6 H Sodium 140 Potassium 3.8 Chloride 101 Carbon Dioxide 26 Anion Gap 13 BUN 16 Creatinine 1.20 Estim Creat Clear Calc 59 Estimated GFR > 60 Glucose 118 H Calcium 8.8 Discharge Plan Discharge Attending physician on discharge: Alexander Brooks Consulting providers: Bri Agarwal Discharging Clinician: Alexander Brooks Patient Disposition: Home, Self-Care Activity: no preference Diet: as tolerated Patient Instructions: Antibiotic Form, Heart Failure (DC), How to Stop Smoking (DC) Stand Alone Forms: General Discharge Information Follow-up/Referrals: Bri Agarwal, ASSURANCE SPECIALIST-C [Advanced Practice Nurse] - Discharge Medications: New carvedilol [Coreg] 12.5 mg Tablet 12.5 mg PO Q12HR 30 Days Qty: 60 0RF spironolactone 25 mg Tablet 25 mg PO QAM 30 Days Qty: 30 0RF magnesium oxide 400 mg (241.3 mg magnesium) Tablet 400 mg PO QAM 30 Days Qty: 30 0RF furosemide 20 mg Tablet 20 mg PO DAILY 30 Days Qty: 30 0RF potassium chloride [K-Tab] 20 mEq Tablet Extended Release 20 meq PO DAILY@0800 30 Days Qty: 30 0RF Entresto 24-26 mg Tablet 1 tab PO Q12HR 30 Days Qty: 60 0RF Date of admission: 06/25/22 13:36 Primary Care Provider: PHYSICIAN NOT ON STAFF,NONSTAFF Admitting Provider: Yash Arias Attending physician on admission: Yash Arias Condition: Stable
== END 2022-06-28 11:11 | disposition home or self-care (01) | DRG 194 ==
LOC: ANHED 10:23 → ANHIMU 13:20 → ANH2MED 06-28 10:36 → ANHIMU 07-01 09:21
PROVIDERS: Family Medicine; Admitting Provider Internal Medicine; Emergency Provider Emergency Medicine; Visit Provider Chiropractor
DX: I11.0 Hypertensive heart disease with heart failure (principal); I08.0 Rheumatic disorders of both mitral and aortic valves; I50.23 Acute on chronic systolic (congestive) heart failure; F17.210 Nicotine dependence, cigarettes, uncomplicated; R74.8 Abnormal levels of other serum enzymes; Z91.14 Patient's other noncompliance with medication regimen
CPT/HCPCS: 36415; 71045; 76705; 80048; 80053; 80061; 80074; 83735; 83880; 84100; 84484; 85025; 85027; 93005; 93970; 96372; 96374; 96375; 96376; 99285; A9270; C8929; G0378; G0379; J1650; J1940; J3475